=== PATIENT | male | born 1935 | race Caucasian/White ===

== ENCOUNTER 2021-06-19 14:01 | Emergency (ER) | payer MEDICARE, BC ==
[~2021-06-19] VITALS: Ht 170.2 cm; Wt 81.6 kg
[~2021-06-19 14:01] MED LIST: ADULT LOW DOSE81 MG; AMOXICILLIN500 MG; COREG12.5 MG; COZAAR25 MG; PACERONE200 MG; PLAVIX75 MG; PROSCAR5 MG; SYNTHROID25 MCG; TESSALON PERLE100 MG; ZOCOR40 MG
[2021-06-19] MEDS ORDERED: SODIUM CHLORIDE 0.9% 1000ML 500 ML IV ONE (15:00)
[2021-06-19 15:34] LABS: BASOPHILS % 0.2 % (0.0-1.0); EOSINOPHILS % 0.6 % (0.0-6.0); HEMATOCRIT 38.2 % (38.2-49.6); HEMOGLOBIN 12.2 g/dL (14.0-18.0); LYMPHOCYTES # (AUTO) 0.5 (1.0-3.2); LYMPHOCYTES % 9.6 % (18.0-39.1); MEAN CORPUSCULAR HEMOGLOBIN 31.6 pg (28-32); MEAN CORPUSCULAR HGB CONC 31.9 g/dL (31-35); MONOCYTES # (AUTO) 0.3 (0.2-0.8); MONOCYTES % 5.6 % (4.4-11.3); NEUTROPHILS # (AUTO) 4.4 (2.1-6.9); NEUTROPHILS % 83.2 % (38.7-80.0); PLATELET COUNT 106 x10e3/uL (140-360); RED BLOOD COUNT 3.86 x10e6/uL (4.3-5.7); RED CELL DISTRIBUTION WIDTH 18.1 % (11.7-14.4)
[2021-06-19 15:51] LABS: ALBUMIN 3.5 g/dL (3.5-5.0); ALBUMIN/GLOBULIN RATIO 1.1 (0.8-2.0); ANION GAP 13.5 mmol/L (8-16); CALCIUM 9.7 mg/dL (8.4-10.2); CREATININE, SERUM 0.83 mg/dL (0.72-1.25); POTASSIUM 3.5 mmol/L (3.5-5.1)
[2021-06-19 17:08] LABS: CLARITY,URINE CLOUDY (CLEAR); COLOR,URINE AMBER (YELLOW); KETONES,URINE NEGATIVE (NEGATIVE); LEUKOCYTE ESTERASE ,URINE NEGATIVE (NEGATIVE); NITRITE,URINE NEGATIVE (NEGATIVE); PROTEIN,URINE DIPSTICK 1+ (NEGATIVE); URINE UROBILINOGEN 4 mg/dL (0.2 - 1)
[2021-06-19 17:10] LABS: BACTERIA,URINE MODERATE /HPF; CALCIUM OXALATE CRYSTALS,UR FEW (FEW); EPITHELIAL CELLS,URINE FEW /LPF
[2021-06-19 17:11] LABS: MUCUS,URINE FEW (RARE)
[2021-06-19 18:20] VITALS: BP 99/70
== END 2021-06-19 18:20 | disposition home or self-care (01) ==
LOC: ER 14:44
DX: I95.9 Hypotension, unspecified (principal); I51.7 Cardiomegaly; J90 Pleural effusion, not elsewhere classified
CPT/HCPCS: 36415; 71045; 80053; 81001; 83880; 84484; 85025; 93005; 99283; J7030

== ENCOUNTER 2021-08-10 22:19 | Emergency (ER) | payer MEDICARE, BC, OTHER ==
[~2021-08-10] VITALS: Ht 170.2 cm; Wt 81.6 kg
[2021-08-11 01:46] VITALS: BP 98/60
== END 2021-08-11 01:15 ==
LOC: ER 22:24
DX: S01.01XA Laceration without foreign body of scalp, initial encounter (principal); W01.0XXA Fall on same level from slipping, tripping and stumbling without subsequent striking against object, initial encounter; Y93.01 Activity, walking, marching and hiking; Y92.89 Other specified places as the place of occurrence of the external cause; I10 Essential (primary) hypertension; E03.9 Hypothyroidism, unspecified
CPT/HCPCS: 70450; 72125; 93005; 99283

== ENCOUNTER 2021-08-11 04:22 | Emergency (ER) | payer MEDICARE, BC ==
[~2021-08-11] VITALS: Ht 170.2 cm; Wt 81.6 kg
[2021-08-11 05:31] VITALS: BP 105/70
== END 2021-08-11 06:53 ==
LOC: ER 04:24
DX: S08 Avulsion and traumatic amputation of part of head (principal); I10 Essential (primary) hypertension; E03.9 Hypothyroidism, unspecified; Z95.1 Presence of aortocoronary bypass graft
CPT/HCPCS: 99283